=== PATIENT | male | born 1960 | race American Indian/Alaskan Native ===

== ENCOUNTER 2018-04-02 10:48 | Inpatient (IN) | payer MEDICAID ==
[2018-04-02 10:56] VITALS: TEMP 98.7
[2018-04-02 11:36] LABS: BASO # 0.1 K/uL (0.0-0.2); EOS # 0.1 K/uL (0.0-0.7); EOS % 1.3 % (0.0-4.0); HEMOGLOBIN 15.1 g/dL (12.0-18.0); LYMPH # 1.3 K/uL (1.0-4.3); LYMPH % 21.7 % (20.0-40.0); MEAN CELL VOLUME 90.3 fl (80.0-94.0); MEAN CORPUSCULAR HEMOGLOBIN 29.6 pg (27.0-31.0); MEAN CORPUSCULAR HGB CONC 32.8 g/dL (33.0-37.0); MEAN PLATELET VOLUME 8.9 fl (7.2-11.7); MONO # 0.6 K/uL (0.0-0.8); MONO % 9.9 % (0.0-10.0); NEUT % 66.1 % (50.0-75.0); NRBC % 0.1 % (0.0-0.0); RBC 5.11 Mil/uL (4.40-5.90); RED CELL DISTRIBUTION WIDTH 15.6 % (11.5-14.5)
[2018-04-02 11:41] LABS: VENOUS BLOOD GAS BASE EXCESS 1.5 mmol/L (0.0-2.0); VENOUS BLOOD GAS PCO2 43 mmHg (40-60); VENOUS BLOOD GAS PO2 40 mm/Hg (30-55)
[2018-04-02 11:48] LABS: INR 1.1; PROTHROMBIN TIME 11.7 Seconds (9.8-13.1)
[2018-04-02 11:50] LABS: PARTIAL THROMBOPLASTIN TIME 32.5 Seconds (25.6-37.1)
[2018-04-02 11:51] LABS: BLOOD UREA NITROGEN 16 mg/dl (9-20); CALCIUM 9.2 mg/dL (8.4-10.2); GFR NON-AFRICAN AMERICAN > 60
[2018-04-02 12:03] LABS: B-TYPE NATRIURETIC PEPTIDE 50.4 pg/ml (0-900)
--- NOTE | 2018-04-02 12:40 | ED PDOC ---
HPI: General Adult Time Seen by Provider: 04/02/18 11:05 Chief Complaint (Nursing): Abdominal Pain Chief Complaint (Provider): Bradycardia History Per: Patient History/Exam Limitations: no limitations Onset/Duration Of Symptoms: Hrs Current Symptoms Are (Timing): Still Present Additional Complaint(s): Chirag Sims is a 57 year old male, with a past medical history of depression and BPH, who was sent to the emergency department from [facility] after being found to be bradycardic. Patient states he was never told he has heart problems or irregular heart beats before. Patient further states he was getting endoscopy and colonoscopy partly because he has had frequent nausea and gastritis since young adult but never worked up for it. Patient currently taking Xypram and Tamsulosin. He denies any chest pain, abdominal pain, vomiting , back pain, shortness of breath, numbness or weakness in the past month. No known family history of cardiac disease. No further medical complaints. PMD: None provided. Past Medical History Reviewed: Historical Data, Nursing Documentation, Vital Signs Vital Signs: Last Vital Signs Temp 98.7 F 04/02/18 10:52 Pulse 52 L 04/02/18 14:19 Resp 18 04/02/18 14:19 BP 177/101 H 04/02/18 14:19 Pulse Ox 99 04/02/18 14:21 - Medical History PMH: Benign Prostatic Hyperplasia, Depression, HTN Denies: Diabetes, Hepatitis, HIV, Chronic Kidney Disease, Seizures, Sexually Transmitted Disease - Surgical History Surgical History: No Surg Hx - Family History Family History: States: Hypertension - Social History Current smoker - smoking cessation education provided: No Alcohol: Occasional Drugs: Cannabis (occasionally) - Home Medications Home Medications: Ambulatory Orders Medication Instructions Recorded Citalopram Hydrobromide [Celexa] 20 mg PO DAILY 04/02/18 Cyanocobalamin [Vitamin B12 1000 1,000 mcg PO DAILY 04/02/18 mcg Tab] - Allergies Allergies/Adverse Reactions: Allergies Allergy/AdvReac Type Severity Reaction Status Date / Time No Known Allergies Allergy Verified 07/12/15 07:00 Review of Systems ROS Statement: Except As Marked, All Systems Reviewed And Found Negative Cardiovascular: Negative for: Chest Pain Respiratory: Negative for: Shortness of Breath Gastrointestinal: Negative for: Vomiting, Abdominal Pain Musculoskeletal: Negative for: Back Pain Neurological: Negative for: Weakness, Numbness Physical Exam - Reviewed Nursing Documentation Reviewed: Yes Vital Signs Reviewed: Yes - Physical Exam Appears: Positive for: No Acute Distress Head Exam: Positive for: ATRAUMATIC, NORMAL INSPECTION, NORMOCEPHALIC Skin: Positive for: Normal Color, Warm, Dry Eye Exam: Positive for: Normal appearance, EOMI, PERRL Neck: Positive for: Painless ROM Cardiovascular/Chest: Positive for: Regular Rate, Rhythm. Negative for: Murmur Respiratory: Positive for: Normal Breath Sounds. Negative for: Respiratory Distress Gastrointestinal/Abdominal: Positive for: Normal Exam, Soft. Negative for: Tenderness Back: Positive for: Normal Inspection Extremity: Positive for: Normal ROM (upper and lower extremities). Negative for : Deformity, Swelling Neurologic/Psych: Positive for: Alert, Oriented - Laboratory Results Result Diagrams: 04/02/18 11:25 04/02/18 11:25 - ECG O2 Sat by Pulse Oximetry: 99 (RA) Pulse Ox Interpretation: Normal Medical Decision Making Medical Decision Making: Time: 11:05 Initial Impression: Work up for bradycardic. Patient currently asymptomatic and pain free. Consult cardiology and assess patient. Initial Plan: --VBG --BNP --BMP --Troponin I --CBC w/ differential --PTT --PT --Accucheck --Reevaluation EKG: T-wave inversions in V2-V6. No ST elevations or depression. Time: 14:01 --Discussed need for admission with patient for onset of bradycardia. Patient has been admitted. He was informed that he will get cardiac consult, further repeat labs and workup ordered. In presence of provider and nurse, patient stated he wants to sign AMA. Both nurse and provider talked to healthcare proxy who expressed concern and was able to talk patient into staying. Time: 17:00 --Patient seen in hallway, fully dressed, bleeding from IV site where he took out his IV. He states he wants to leave right now. Nurse told him to return to his room. Discussed risk of signing AMA, including cardiac injury, permanent disability or . Confirmed with healthcare proxy that patient has the mental capacity to take care of himself on a daily basis. Patient declining referral and will follow up with PMD. ----- Scribe Attestation: Documented by Norberto Berry, acting as a scribe for Elaine Anderson MD. Provider Scribe Attestation: All medical record entries made by the Scribe were at my direction and personally dictated by me. I have reviewed the chart and agree that the record accurately reflects my personal performance of the history, physical exam, medical decision making, and the department course for this patient. I have also personally directed, reviewed, and agree with the discharge instructions and disposition. Disposition - Disposition
--- NOTE | 2018-04-02 15:53 | RAD ---
Date of service: 04/02/2018 HISTORY: possible admission COMPARISON: No prior. FINDINGS: LUNGS: Lung jewell appear hyperinflated ; rule out COPD or emphysema. There appears to be some minimal linear atelectasis and or scarring seen extending diagonally from the right infrahilar region superiorly into the right mid to upper lung field toward the pleural surface. PLEURA: No significant pleural effusion identified, no pneumothorax apparent. CARDIOVASCULAR: Normal. OSSEOUS STRUCTURES: No significant abnormalities. VISUALIZED UPPER ABDOMEN: Normal. OTHER FINDINGS: None. IMPRESSION: Lung jewell appear hyperinflated ; rule out COPD or emphysema. There appears to be some minimal linear atelectasis and or scarring seen extending diagonally from the right infrahilar region superiorly into the right mid to upper lung field toward the pleural surface.
[2018-04-02 16:01] VITALS: BP 177/101; PULSE 52
--- NOTE | 2018-04-02 18:11 | CARD ---
APPROVED REPORT Date of service: 04/02/2018 <Conclusion> Sinus bradycardia T wave abnormality, consider inferior ischemia T wave abnormality, consider anterior ischemia Abnormal ECG
[2018-04-02 18:18] VITALS: RESP 16; O2SAT 100
== END 2018-04-02 17:54 | disposition left against medical advice (07) | DRG 139 ==
LOC: H.ER 10:48 → H.ERHOLD 14:01
PROVIDERS: ADMIT Internal Medicine; ATTEND Internal Medicine
DX: R00.1 Bradycardia, unspecified (principal); F32.9 Major depressive disorder, single episode, unspecified; N40.0 Benign prostatic hyperplasia without lower urinary tract symptoms; I10 Essential (primary) hypertension

== ENCOUNTER 2018-07-11 23:09 | Emergency (ER) | payer MEDICAID ==
[2018-07-11 23:13] VITALS: RESP 16
--- NOTE | 2018-07-12 00:33 | ED PDOC ---
HPI: General Adult Time Seen by Provider: 07/12/18 00:15 Chief Complaint (Nursing): Medical Clearance Chief Complaint (Provider): medical clearance History Per: Patient (58 y/o male here for medical/psychiatric clearance for incarceration. States he is on seroquel for sleeping difficulty but denies any current psychiatric illness. Has been admitted in past for depression. Is currently under arrest for assaulting another individual. Denies any complaints currently.) Past Medical History Reviewed: Historical Data, Nursing Documentation, Vital Signs Vital Signs: Last Vital Signs Temp 97.5 F L 07/11/18 23:11 Pulse 90 07/11/18 23:11 Resp 16 07/11/18 23:11 BP 153/100 H 07/11/18 23:11 Pulse Ox 98 07/11/18 23:11 - Medical History PMH: Benign Prostatic Hyperplasia, Depression, HTN Denies: Diabetes, Hepatitis, HIV, Chronic Kidney Disease, Seizures, Sexually Transmitted Disease - Family History Family History: States: Hypertension - Home Medications Home Medications: Ambulatory Orders Medication Instructions Recorded Citalopram Hydrobromide [Celexa] 20 mg PO DAILY 04/02/18 Cyanocobalamin [Vitamin B12 1000 1,000 mcg PO DAILY 04/02/18 mcg Tab] - Allergies Allergies/Adverse Reactions: Allergies Allergy/AdvReac Type Severity Reaction Status Date / Time sesame seed Allergy RASH Verified 07/11/18 23:11 Review of Systems ROS Statement: Except As Marked, All Systems Reviewed And Found Negative Physical Exam - Reviewed Nursing Documentation Reviewed: Yes Vital Signs Reviewed: Yes - Physical Exam Appears: Positive for: Well, Non-toxic, No Acute Distress Head Exam: Positive for: ATRAUMATIC, NORMAL INSPECTION, NORMOCEPHALIC Skin: Positive for: Normal Color, Warm, DRY Eye Exam: Positive for: EOMI, Normal appearance, PERRL ENT: Positive for: Normal ENT Inspection Neck: Positive for: Normal, Painless ROM Cardiovascular/Chest: Positive for: Regular Rate, Rhythm Respiratory: Positive for: CNT, Normal Breath Sounds Gastrointestinal/Abdominal: Positive for: Normal Exam, Soft Back: Positive for: Normal Inspection Extremity: Positive for: Normal ROM Neurologic/Psych: Positive for: Alert, Oriented - ECG O2 Sat by Pulse Oximetry: 98 - Progress ED Course And Treament: cleared by dr. elliott for d/c home Psychiatric clearance. Disposition - Clinical Impression Clinical Impression: Medical clearance for incarceration - Patient ED Disposition Is Patient to be Admitted: No - Disposition Disposition: Routine/Home Disposition Time: 00:33 Condition: FAIR Additional Instructions: PATIENT IS MEDICALLY AND PSYCHIATRICALLY CLEARED FOR INCARCERATION. Instructions: General (DC)
[2018-07-12 05:09] VITALS: BP 136/88; PULSE 96; TEMP 98; O2SAT 99
== END 2018-07-12 00:55 ==
LOC: H.ER 23:09
DX: F32.9 Major depressive disorder, single episode, unspecified; I10 Essential (primary) hypertension; N40.0 Benign prostatic hyperplasia without lower urinary tract symptoms

== ENCOUNTER 2018-09-21 10:37 | Emergency (ER) | payer MEDICAID ==
[2018-09-21 10:48] VITALS: BMI 22.4
[2018-09-21 10:49] VITALS: RESP 18
--- NOTE | 2018-09-21 11:56 | ED PDOC ---
HPI: Male Pain Time Seen by Provider: 09/21/18 11:03 Chief Complaint (Nursing): Abdominal Pain Chief Complaint (Provider): unable to urinate History Per: Patient History/Exam Limitations: no limitations Onset/Duration Of Symptoms: Hrs (last night) Current Symptoms Are (Timing): Still Present Associated Symptoms: Vomiting. denies: Fever, Chills Additional Complaint(s): Chirag Sims is a 58 year old male, with a past medical history of HTN, enlarged prostate and dementia, who presents to the emergency department complaining of being unable to urinate since last night. Patient feels urged and also reports a lower abdominal pain. He had x1 episode of vomiting. He denies any fever, chills, diarrhea, back pain or other medical complaints. PMD: Dr. Kamini Curiel Past Medical History Reviewed: Historical Data, Nursing Documentation, Vital Signs Vital Signs: Last Vital Signs Temp 98 F 09/21/18 10:48 Pulse 68 09/21/18 10:48 Resp 18 09/21/18 10:48 BP 153/106 H 09/21/18 10:48 Pulse Ox 98 09/21/18 10:48 - Medical History PMH: Benign Prostatic Hyperplasia, Depression, HTN Denies: Diabetes, Hepatitis, HIV, Chronic Kidney Disease, Seizures, Sexually Transmitted Disease - Surgical History Surgical History: No Surg Hx - Family History Family History: States: Hypertension - Social History Current smoker - smoking cessation education provided: Yes (Light smoker <10 cigarettes daily) Alcohol: Social Drugs: Cannabis - Home Medications Home Medications: Ambulatory Orders Medication Instructions Recorded Citalopram Hydrobromide [Celexa] 20 mg PO DAILY 04/02/18 Cyanocobalamin [Vitamin B12 1000 1,000 mcg PO DAILY 04/02/18 mcg Tab] Sulfamethoxazole/Trimethoprim 1 tab PO BID #20 tab 09/21/18 [Bactrim DS 800 mg-160 mg] - Allergies Allergies/Adverse Reactions: Allergies Allergy/AdvReac Type Severity Reaction Status Date / Time sesame seed Allergy RASH Verified 07/11/18 23:11 Review of Systems ROS Statement: Except As Marked, All Systems Reviewed And Found Negative Constitutional: Negative for: Fever, Chills Gastrointestinal: Positive for: Vomiting, Abdominal Pain. Negative for: Diarrhea Genitourinary Male: Positive for: Other (urinary retention) Musculoskeletal: Negative for: Back Pain Physical Exam - Reviewed Nursing Documentation Reviewed: Yes Vital Signs Reviewed: Yes - Physical Exam Appears: Positive for: No Acute Distress Head Exam: Positive for: ATRAUMATIC, NORMAL INSPECTION, NORMOCEPHALIC Skin: Positive for: Normal Color, Warm, Dry Eye Exam: Positive for: Normal appearance, EOMI, PERRL Neck: Positive for: Normal, Painless ROM Cardiovascular/Chest: Positive for: Regular Rate, Rhythm. Negative for: Murmur Respiratory: Positive for: Normal Breath Sounds. Negative for: Respiratory Distress Gastrointestinal/Abdominal: Positive for: Tenderness (suprapubic), Distended (suprapubic ) Back: Positive for: Normal Inspection. Negative for: L CVA Tenderness, R CVA Tenderness, Vertebral Tenderness Extremity: Positive for: Normal ROM (upper and lower extremities). Negative for: Deformity, Swelling Neurologic/Psych: Positive for: Alert, Oriented - ECG O2 Sat by Pulse Oximetry: 98 (RA) Pulse Ox Interpretation: Normal Medical Decision Making Medical Decision Making: Time: 11:03 Initial Impression: Urinary retention. Initial Plan: --Urine culture --Urinalysis --Reevaluation 11:10 -16 Arabic garibay passed w/o difficulty with thousands ccs of clear urine in garibay consistent with urinary retention. Will change bag and refer to urology. ---- Scribe Attestation: Documented by Norberto Berry, acting as a scribe for Arik Bhatt MD Provider Scribe Attestation: All medical record entries made by the Scribe were at my direction and personally dictated by me. I have reviewed the chart and agree that the record accurately reflects my personal performance of the history, physical exam, medical decision making, and the department course for this patient. I have also personally directed, reviewed, and agree with the discharge instructions and disposition. Disposition - Clinical Impression Clinical Impression: Urinary retention - Patient ED Disposition Is Patient to be Admitted: No Discussed With : Chad Last Counseled Patient/Family Regarding: Studies Performed, Diagnosis, Need For Followup, Rx Given - Disposition Referrals: Chad Last MD [Medical Doctor] - Disposition: Routine/Home Disposition Time: 12:15 Condition: FAIR Prescriptions: Sulfamethoxazole/Trimethoprim [Bactrim DS 800 mg-160 mg] 1 tab PO BID #20 tab Instructions: Garibay Catheter, Male, Urinary Retention Forms: [facility] ([place])
[2018-09-21 12:34] VITALS: BP 132/86; PULSE 98; TEMP 98.1
[2018-09-21 12:50] LABS: URINE BILIRUBIN NEGATIVE (NEGATIVE); URINE BLOOD NEGATIVE (NEGATIVE); URINE CLARITY CLEAR (Clear); URINE COLOR YELLOW (YELLOW); URINE GLUCOSE (UA) NEG (NEGATIVE); URINE LEUKOCYTE ESTERASE NEG Leu/uL (Negative); URINE PROTEIN NEGATIVE (NEGATIVE); URINE UROBILINOGEN 0.2-1.0 mg/dL (0.2-1.0)
[2018-09-21 14:17] VITALS: O2SAT 98
== END 2018-09-21 12:10 | disposition home or self-care (01) ==
LOC: H.ER 10:37
DX: R33.8 Other retention of urine (principal); I10 Essential (primary) hypertension; N40.1 Benign prostatic hyperplasia with lower urinary tract symptoms